=== PATIENT | male | born 1935 | race Caucasian/White ===

== ENCOUNTER 2017-06-09 18:24 | Inpatient (IN) | payer OTHER, MEDICARE ==
[~2017-06-09] VITALS: Ht 175.3 cm; Wt 83.9 kg
[2017-06-09 18:24] VITALS: BP_SYST 106
[2017-06-09] MEDS ORDERED: DIPHENHYDRAMINE INJ 50 MG/ML VIAL IVP ONE (19:00)
[2017-06-09] MEDS ORDERED: PIPERACILLIN/TAZO 3.38 GM in NS 50 ML IV ONE (19:00)
[2017-06-09] MEDS ORDERED: KETOROLAC TROMETHAMINE 30 MG VIAL IVP ONE (19:00)
[2017-06-09] MEDS ORDERED: ACETAMINOPHEN 500 MG TABLET PO ONE (19:15)
[2017-06-09 19:58] LABS: HEMATOCRIT 45.2 % (36-54); HEMOGLOBIN 15.3 g/dL (14.0-18.0); MEAN CORPUSCULAR HEMOGLOBIN 32 pg (27-31); MEAN CORPUSCULAR HGB CONC 34 % (32-36); MEAN CORPUSCULAR VOLUME 95 fL (79.0-98.0); PLATELET COUNT (AUTO) 255 K/uL (130-430); RED BLOOD CELL COUNT(AUTO) 4.76 MIL/uL (4.2-6.2); RED CELL DISTRIBUTION WIDTH 12.7 % (9.0-15.0); WHITE BLOOD COUNT (AUTO) 17.6 K/uL (4.8-10.8)
[2017-06-09] MEDS ORDERED: PIPERACILLIN/TAZOBACTAM 3.375 GM/VIAL (ZOSYN) IV ONE (19:59)
[2017-06-09] MEDS ORDERED: VANCOMYCIN HCL 1,000 MG in D5W 250 ML IV ONE (20:00)
[2017-06-09] MEDS ORDERED: NS 1000 ML BAG IV ONE (20:00)
[2017-06-09 20:04] LABS: PROTHROMBIN TIME 10.5 SECS (9.5-12.5)
[2017-06-09 20:10] LABS: ANION GAP 11 (5-15); CALCIUM 8.7 mg/dL (8.4-11.0); CHLORIDE 96 mmol/L (98-107); CREATININE 1.01 mg/dL (0.55-1.30); GLUCOSE 331 mg/dL (70-99); POTASSIUM 3.8 mmol/L (3.5-5.1); SODIUM SERUM 131 mmol/L (136-145); UREA NITROGEN, BLOOD 16 mg/dL (8-21)
[2017-06-09 20:14] LABS: ALANINE AMINOTRANSFERASE 33 U/L (12-78); ALBUMIN 3.5 g/dL (3.4-4.8); ASPARTATE AMINOTRANSFERASE 16 U/L (10-37); LIPASE 85 U/L (73-393); TOTAL BILIRUBIN 1.3 mg/dL (0.0-1.0)
[2017-06-09 20:22] LABS: BAND % (MANUAL) 8 % (0-6); BASOPHILS % (MANUAL) 0 % (0-2); EOSINOPHILS % (MANUAL) 0 % (0-7); LYMPHOCYTES % (MANUAL) 4 % (20-46); MONOCYTES % (MANUAL) 11 % (0-11)
[2017-06-09 20:29] LABS: BILIRUBIN,URINE NEGATIVE (NEGATIVE); COLOR,URINE YELLOW (YELLOW); GLUCOSE,URINE 3+ (NEGATIVE); KETONES,URINE 1+ (NEGATIVE); NITRITE, URINE NEGATIVE (NEGATIVE); PROTEIN URINE TRACE (NEGATIVE); UROBILINOGEN,URINE 0.2 (0.2-1.0)
[2017-06-09 20:38] LABS: BLOOD, URINE TRACE (NEGATIVE); CLARITY/URINE HAZY (CLEAR)
[2017-06-09 20:39] LABS: LEUKOCYTE ESTERASE ,URINE 2+ (NEGATIVE)
[2017-06-09 20:40] LABS: BACTERIA,URINE MODERATE /HPF (None Seen); MUCUS,URINE None Seen /LPF (None Seen); RBC,URINE NONE SEEN /HPF (0-3); WBC,URINE 20-50 /HPF (0-3)
[2017-06-09] MEDS ORDERED: VANCOMYCIN HCL 1000 MG/VIAL IV ONE (20:43)
[2017-06-09] MEDS ORDERED: GLU500 PO (21:55)
[2017-06-09] MEDS ORDERED: ZOLP5TAB2 PO (21:55)
[2017-06-09] MEDS ORDERED: HYDR-3610 PO (21:55)
[2017-06-09] MEDS ORDERED: CLOP75TA2 PO (21:55)
[2017-06-09] MEDS ORDERED: ROSU5TAB3 PO (21:55)
[2017-06-09] MEDS ORDERED: GABA-529 PO (21:55)
[2017-06-09] MEDS ORDERED: DIPH-179 PO (21:55)
[2017-06-09] MEDS ORDERED: ACETAMINOPHEN 325 MG TABLET PO PRN (22:00)
[2017-06-09 22:28] VITALS: BP_SYST 114
[2017-06-09] MEDS: NACL 0.9% 1,000 ML IV SCH (23:53)
[2017-06-10 00:30] VITALS: BP_SYST 114
[2017-06-10 04:53] VITALS: BP_SYST 141
[2017-06-10] MEDS: INSULIN REGULAR, HUMAN 100 UNITS/ML, 10 ML VIAL (novoLIN R) SUBCUT PRN ×4 (06:42→21:40)
[2017-06-10 08:00] VITALS: BP_SYST 142
[2017-06-10] MEDS: HYDROcodone/ACETAMIN 5-325 MG TAB (NORCO/ VICODIN) PO PRN (09:35)
[2017-06-10] MEDS ORDERED: ZOLPIDEM TARTRATE 5 MG TABLET PO PRN (09:45)
[2017-06-10] MEDS ORDERED: ROSUVASTATIN CALCIUM 5 MG/TAB (CRESTOR) PO SCH (09:45)
[2017-06-10] MEDS ORDERED: ATORVASTATIN 10 MG TABLET PO ONE (10:00)
[2017-06-10] MEDS: CLOPIDOGREL BISULFATE 75 MG TABLET PO SCH (10:20)
[2017-06-10] MEDS: NACL 0.9% 1,000 ML IV SCH ×2 (10:20→21:31)
[2017-06-10] MEDS: GABAPENTIN 100 MG CAPSULE PO SCH ×2 (10:20→21:00)
[2017-06-10] MEDS ORDERED: DIPHENOXYLATE HCL/ATROP SULF 2.5 MG TAB PO ONE (10:45)
[2017-06-10] MEDS: DIPHENOXYLATE HCL/ATROP SULF 2.5 MG TAB PO SCH ×2 (11:06→21:00)
[2017-06-10 12:00] VITALS: BP_SYST 138
[2017-06-10] MEDS: TAMSULOSIN HCL 0.4 MG CAP PO SCH ×2 (12:15→21:30)
[2017-06-10 12:41] LABS: BASOPHILS % (AUTO) 0.2 % (0.0-2.0); EOSINOPHILS # (AUTO) 0.1 K/uL (0.0-0.4); EOSINOPHILS % (AUTO) 0.7 % (0.0-4.0); HEMATOCRIT 42.5 % (36-54); HEMOGLOBIN 13.8 g/dL (14.0-18.0); LYMPHOCYTES # (AUTO) 1.2 K/uL (1.0-5.5); LYMPHOCYTES % (AUTO) 8.1 % (20.5-51.5); MEAN CORPUSCULAR HEMOGLOBIN 32 pg (27-31); MEAN CORPUSCULAR HGB CONC 33 % (32-36); MEAN CORPUSCULAR VOLUME 97 fL (79.0-98.0); MONOCYTES % (AUTO) 6.6 % (1.7-9.3); NEUTROPHILS # (AUTO) 12.9 K/uL (1.8-7.7); NEUTROPHILS % (AUTO) 84.4 % (40.0-70.0); PLATELET COUNT (AUTO) 249 K/uL (130-430); RED BLOOD CELL COUNT(AUTO) 4.39 MIL/uL (4.2-6.2); RED CELL DISTRIBUTION WIDTH 12.7 % (9.0-15.0); WHITE BLOOD COUNT (AUTO) 15.2 K/uL (4.8-10.8)
[2017-06-10 12:42] LABS: ANION GAP 7 (5-15); CALCIUM 8.5 mg/dL (8.4-11.0); CHLORIDE 103 mmol/L (98-107); CREATININE 0.99 mg/dL (0.55-1.30); GLUCOSE 177 mg/dL (70-99); POTASSIUM 3.8 mmol/L (3.5-5.1); SODIUM SERUM 138 mmol/L (136-145); UREA NITROGEN, BLOOD 15 mg/dL (8-21)
[2017-06-10] MEDS ORDERED: TAMSULOSIN HCL 0.4 MG CAP PO ONE (13:45)
[2017-06-10] MEDS: PIPERACILLIN/TAZO 3.375/DEX-IS 50 ML IV SCH ×3 (14:31→23:48)
[2017-06-10] MEDS: HYDROcodone/ACETAMIN 10-325 MG TAB PO PRN ×2 (14:40→23:49)
[2017-06-10 15:37] VITALS: BP_SYST 139
[2017-06-10 19:10] VITALS: BP_SYST 141
[2017-06-10] MEDS: metFORMIN HCL 500 MG TABLET PO SCH (21:30)
[2017-06-11] MEDS: NACL 0.9% 1,000 ML IV SCH ×2 (03:57→08:11)
[2017-06-11] MEDS: PIPERACILLIN/TAZO 3.375/DEX-IS 50 ML IV SCH ×3 (05:51→17:06)
[2017-06-11] MEDS: INSULIN REGULAR, HUMAN 100 UNITS/ML, 10 ML VIAL (novoLIN R) SUBCUT PRN ×4 (05:54→20:55)
[2017-06-11 07:34] LABS: BASOPHILS % (AUTO) 0.3 % (0.0-2.0); EOSINOPHILS # (AUTO) 0.3 K/uL (0.0-0.4); EOSINOPHILS % (AUTO) 2.6 % (0.0-4.0); HEMATOCRIT 36.8 % (36-54); HEMOGLOBIN 12.7 g/dL (14.0-18.0); LYMPHOCYTES # (AUTO) 1.4 K/uL (1.0-5.5); LYMPHOCYTES % (AUTO) 12.3 % (20.5-51.5); MEAN CORPUSCULAR HEMOGLOBIN 33 pg (27-31); MEAN CORPUSCULAR HGB CONC 34 % (32-36); MEAN CORPUSCULAR VOLUME 97 fL (79.0-98.0); MONOCYTES # (AUTO) 0.9 K/uL (0.0-1.0); MONOCYTES % (AUTO) 8.3 % (1.7-9.3); NEUTROPHILS # (AUTO) 8.4 K/uL (1.8-7.7); NEUTROPHILS % (AUTO) 76.5 % (40.0-70.0); PLATELET COUNT (AUTO) 206 K/uL (130-430); RED CELL DISTRIBUTION WIDTH 12.8 % (9.0-15.0)
[2017-06-11 08:00] VITALS: BP_SYST 160
[2017-06-11] MEDS: TAMSULOSIN HCL 0.4 MG CAP PO SCH ×2 (08:08→20:52)
[2017-06-11] MEDS: ATORVASTATIN 10 MG TABLET PO SCH (08:08)
[2017-06-11] MEDS: DIPHENOXYLATE HCL/ATROP SULF 2.5 MG TAB PO SCH ×2 (08:08→20:51)
[2017-06-11] MEDS: GABAPENTIN 100 MG CAPSULE PO SCH ×2 (08:09→20:52)
[2017-06-11 08:15] LABS: ALANINE AMINOTRANSFERASE 21 U/L (12-78); ALBUMIN 2.5 g/dL (3.4-4.8); ANION GAP 8 (5-15); ASPARTATE AMINOTRANSFERASE 14 U/L (10-37); CALCIUM 7.9 mg/dL (8.4-11.0); CHLORIDE 103 mmol/L (98-107); GLUCOSE 166 mg/dL (70-99); POTASSIUM 3.8 mmol/L (3.5-5.1); SODIUM SERUM 135 mmol/L (136-145); TOTAL BILIRUBIN 0.7 mg/dL (0.0-1.0); UREA NITROGEN, BLOOD 11 mg/dL (8-21)
[2017-06-11] MEDS: CLOPIDOGREL BISULFATE 75 MG TABLET PO SCH (08:17)
[2017-06-11] MEDS ORDERED: CLOPIDOGREL BISULFATE 75 MG TABLET ONE (08:27)
[2017-06-11] MEDS: HYDROcodone/ACETAMIN 5-325 MG TAB (NORCO/ VICODIN) PO PRN (10:56)
[2017-06-11 19:05] VITALS: BP_SYST 128
[2017-06-11] MEDS: metFORMIN HCL 500 MG TABLET PO SCH (20:52)
[2017-06-11] MEDS: HYDROcodone/ACETAMIN 10-325 MG TAB PO PRN (20:59)
[2017-06-11 23:34] VITALS: BP_SYST 139
[2017-06-12] MEDS: PIPERACILLIN/TAZO 3.375/DEX-IS 50 ML IV SCH ×3 (00:05→12:04)
[2017-06-12 04:13] VITALS: BP_SYST 144
[2017-06-12] MEDS: INSULIN REGULAR, HUMAN 100 UNITS/ML, 10 ML VIAL (novoLIN R) SUBCUT PRN ×2 (06:03→12:09)
[2017-06-12 07:35] LABS: ANION GAP 10 (5-15); CALCIUM 8.5 mg/dL (8.4-11.0); CHLORIDE 102 mmol/L (98-107); CREATININE 0.89 mg/dL (0.55-1.30); GLUCOSE 137 mg/dL (70-99); POTASSIUM 3.3 mmol/L (3.5-5.1); SODIUM SERUM 137 mmol/L (136-145); UREA NITROGEN, BLOOD 7 mg/dL (8-21)
[2017-06-12 07:41] LABS: BASOPHILS % (AUTO) 0.5 % (0.0-2.0); EOSINOPHILS # (AUTO) 0.4 K/uL (0.0-0.4); HEMATOCRIT 38.9 % (36-54); HEMOGLOBIN 13.2 g/dL (14.0-18.0); LYMPHOCYTES # (AUTO) 1.2 K/uL (1.0-5.5); LYMPHOCYTES % (AUTO) 18.7 % (20.5-51.5); MEAN CORPUSCULAR HEMOGLOBIN 33 pg (27-31); MEAN CORPUSCULAR HGB CONC 34 % (32-36); MEAN CORPUSCULAR VOLUME 96 fL (79.0-98.0); MONOCYTES # (AUTO) 0.6 K/uL (0.0-1.0); MONOCYTES % (AUTO) 10.1 % (1.7-9.3); NEUTROPHILS # (AUTO) 4.2 K/uL (1.8-7.7); NEUTROPHILS % (AUTO) 64.7 % (40.0-70.0); PLATELET COUNT (AUTO) 244 K/uL (130-430); RED BLOOD CELL COUNT(AUTO) 4.05 MIL/uL (4.2-6.2); RED CELL DISTRIBUTION WIDTH 12.4 % (9.0-15.0)
[2017-06-12 07:53] LABS: WHITE BLOOD COUNT (AUTO) 6.4 K/uL (4.8-10.8)
[2017-06-12 08:00] VITALS: BP_SYST 128
[2017-06-12] MEDS: CLOPIDOGREL BISULFATE 75 MG TABLET PO SCH (08:32)
[2017-06-12] MEDS: DIPHENOXYLATE HCL/ATROP SULF 2.5 MG TAB PO SCH (08:32)
[2017-06-12] MEDS: GABAPENTIN 100 MG CAPSULE PO SCH (08:32)
[2017-06-12] MEDS: ATORVASTATIN 10 MG TABLET PO SCH (08:32)
[2017-06-12] MEDS: TAMSULOSIN HCL 0.4 MG CAP PO SCH (08:32)
[2017-06-12 11:10] VITALS: BP_SYST 148
[2017-06-12] MEDS ORDERED: POTASSIUM CHLORIDE 20 MEQ TAB.PRT.SR PO ONE (13:45)
== END 2017-06-12 14:55 | disposition home or self-care (01) | DRG 872 ==
LOC: SED 18:24 → STU 21:57 → SMU 06-10 12:57
PROVIDERS: ADMIT Internal Medicine; ATTEND Internal Medicine
DX: A41.9 Sepsis, unspecified organism (principal); E44.0 Moderate protein-calorie malnutrition; N39.0 Urinary tract infection, site not specified; E11.9 Type 2 diabetes mellitus without complications; E78.5 Hyperlipidemia, unspecified; E66.9 Obesity, unspecified; N40.0 Benign prostatic hyperplasia without lower urinary tract symptoms; Z86.73 Personal history of transient ischemic attack (TIA), and cerebral infarction without residual deficits; Z79.84 Long term (current) use of oral hypoglycemic drugs; Z79.899 Other long term (current) drug therapy; Z88.6 Allergy status to analgesic agent; Z88.8 Allergy status to other drugs, medicaments and biological substances; Z68.27 Body mass index [BMI] 27.0-27.9, adult
CPT/HCPCS: 36415; 71010; 76770; 80048; 80053; 81000-TC; 82962; 83605; 83690-TC; 84484; 85007; 85025; 85027; 85610-TC; 85730-TC; 87040-TC; 87086; 87186-TC; 93005; 96361; 96365; 96367; 96375; 99285; J1200; J1815; J1885; J2543; J3370; J7030; J7050; J7060